=== PATIENT | male | born 1960 | race Caucasian/White ===

== ENCOUNTER 2017-06-28 04:50 | Inpatient (IN) | payer OTHER ==
[2017-06-03 14:03] VITALS: BMI 31.0
--- NOTE | 2017-06-03 14:30 | PAT Medication Instructions ---
Service Date Jun 03, 2017. Current Home Medication List Aspirin (Aspirin Ec), 81 MG PO QPM Atorvastatin (Lipitor), 40 MG PO QPM Metoprolol Succ (Toprol Xl) (Toprol-Xl), 50 MG PO QPM Medication Instructions For Your Scheduled Surgery - Take the following medications as scheduled the night before surgery: Aspirin (Aspirin Ec), 81 MG PO QPM Atorvastatin (Lipitor), 40 MG PO QPM Metoprolol Succ (Toprol Xl) (Toprol-Xl), 50 MG PO QPM If you have any questions please call us at [phone] or [phone] or [phone]
--- NOTE | 2017-06-03 15:34 | DIAGNOSTIC IMAGING REPORT ---
TWO VIEW CHEST CLINICAL HISTORY: Preoperative examination. FINDINGS: PA and lateral chest radiographs are obtained. No prior studies are available for comparison at the time of dictation. The cardiomediastinal silhouette is unremarkable. There are low lung volumes with mild bibasilar atelectasis. The lungs and pleural spaces are otherwise clear. There is no pneumothorax. The bony thorax appears intact. IMPRESSION: Low lung volumes with no active disease in the chest. Electronically signed by: Alexandro Stockton M.D. 06/03/2017 3:32 PM Dictated Date/Time: 06/03/2017 3:32 PM
[2017-06-03 15:58] LABS: BASO % 0.5 %; BASO ABS # 0.05 K/uL (0-0.2); EOS % 3.2 %; HEMATOCRIT 47.1 % (42-52); HEMOGLOBIN 16.8 g/dL (14.0-18.0); IG# 0.04 K/uL (0.00-0.02); LYMPH % 31.5 %; LYMPH ABS # 2.92 K/uL (1.2-3.4); MEAN CELL VOLUME 90.1 fL (80-100); MEAN CORPUSCULAR HEMOGLOBIN 32.1 pg (25-34); MEAN CORPUSCULAR HGB CONC 35.7 g/dl (32-36); MEAN PLATELET VOLUME 9.3 fL (7.4-10.4); MONO ABS # 0.46 K/uL (0.11-0.59); NEUT % 59.4 %; NEUT ABS # 5.49 K/uL (1.4-6.5); PLATELET COUNT 182 K/uL (130-400); RED CELL DISTRIBUTION WIDTH CV 13.2 % (11.5-14.5); RED CELL DISTRIBUTION WIDTH SD 43.4 fL (36.4-46.3); WHITE BLOOD COUNT 9.26 K/uL (4.8-10.8)
[2017-06-03 16:05] LABS: PTT PATIENT 25.4 SECONDS (21.0-31.0)
[2017-06-03 16:47] LABS: ALBUMIN 3.9 gm/dl (3.4-5.0); CALCIUM 9.2 mg/dl (8.5-10.1); CREATININE 0.83 mg/dl (0.60-1.40); POTASSIUM 3.8 mmol/L (3.5-5.1)
[2017-06-04 06:00] LABS: HEMOGLOBIN A1C 5.1 % (4.5-5.6)
--- NOTE | 2017-06-24 10:44 | History and Physical ---
History & Physical Date Jun 24, 2017. Chief Complaint Left shoulder pain History of Present Illness The patient is a 57 year old male with complaints of left shoulder pain for several years. He has tried conservative therapies with minimal relief. He would like to proceed with a left total shoulder arthroplasty with posterior augmented glenoid. Past Medical/Surgical History PMHx: hypertension, hypercholesterolemia PSHx: bilateral ACL reconstruction, appendectomy, tonsillectomy Additional History Hepatic Disease: No Endocrine Disorder: No Kidney Disease: No Hypertension: Yes Heart Disease: No Bleeding Tendencies: No Infectious Diseases: No Allergies Coded Allergies: Penicillins (Verified Allergy, Unknown, RASH, 06/03/17) Home Medications Scheduled Aspirin (Aspirin Ec), 81 MG PO QPM Atorvastatin (Lipitor), 40 MG PO QPM Metoprolol Succ (Toprol Xl) (Toprol-Xl), 50 MG PO QPM Physical Examination Skin: warm/dry, no rash Eyes: normal inspection, EOMI ENT: normal ENT inspection Head: normocephalic, atraumatic Neck: supple, no adenopathy Respiratory/Chest: lungs clear, normal breath sounds Cardiovascular: regular rate, rhythm, no murmur Abdomen / GI: normal bowel sounds, non tender Extremities: normal inspection, + pertinent finding (Decreased ROM and decreased Strength. ) Neurologic/Psych: no motor/sensory deficits, alert, oriented x 3 Diagnosis Left shoulder primary osteoarthritis Plan of Treatment Patient is scheduled for a left total shoulder arthroplasty with posterior augmented glenoid. Patient has failed conservative therapies and would like to proceed with scheduled surgery. Risks and benefits to surgery were discussed and they wish to proceed. All questions were answered to their satisfaction.
[~2017-06-28] VITALS: Ht 190.5 cm; Wt 113.9 kg
[2017-06-28] VITALS (8 sets, daily range): BP systolic 95–157; BP diastolic 61–86; PULSE 51–88; TEMP 36.4–37; O2SAT 92–96; Ht 190.5 cm; Wt 113.9 kg
[~2017-06-28 04:50] MED LIST: ASPI81TA28 PO; ATOR-24 PO; METO50TA8 PO
[2017-06-28] MEDS ORDERED: LACTATED RINGER'S 1000ML 1,000 ML IV SCH (06:00)
[2017-06-28] MEDS ORDERED: GABAPENTIN 600 MG PO SCH (06:00)
[2017-06-28] MEDS ORDERED: CLINDAMYCIN 600 MG/54 ML D5W IV SCH (06:00)
[2017-06-28] MEDS ORDERED: ROPIVACAINE 5MG/ML 30 ML 150 MG, BUPIVACAINE 0.5% MPF INJ 30 ML, EpINEphrine HCL INJ 0.... INFIL SCH ×8 (06:00)
[2017-06-28] MEDS ORDERED: METOCLOPRAMIDE HCL 10 MG TAB PO SCH (06:00)
[2017-06-28] MEDS ORDERED: DEXAMETHASONE 4 MG TAB PO SCH (06:00)
[2017-06-28] MEDS ORDERED: FAMOTIDINE 20 MG TAB PO SCH (06:00)
[2017-06-28] MEDS ORDERED: ACETAMINOPHEN 500 MG TAB PO SCH (06:00)
[2017-06-28] MEDS ORDERED: CeleBREX 200 MG CAP PO SCH (06:00)
[2017-06-28] MEDS: TRANEXAMIC ACID INJ 1,000 MG x 2 Bags IV SCH ×4 (06:26→10:09)
[2017-06-28] MEDS ORDERED: BUPIVACAINE 0.25% 30 ML VIAL ONE (06:31)
[2017-06-28] MEDS ORDERED: ROPIVACAINE 0.5% 5 MG/ML 30 ML VIAL ONE (06:32)
[2017-06-28] MEDS ORDERED: EpINEphrine INJ 1MG/ML AMP 1 MG/ML AMP ONE (06:32)
[2017-06-28] MEDS ORDERED: CLONIDINE HCL 100 MCG/ML SYRINGE ONE (06:32)
[2017-06-28] MEDS ORDERED: ORTHO JOINT ANESTHETIC ONE (06:35)
[2017-06-28] MEDS ORDERED: POVIDONE-IODINE OP SOLN 30 ML BTL ONE (06:35)
[2017-06-28] MEDS ORDERED: VANCOMYCIN HCL 1000MG/20ML VIAL ONE (06:35)
[2017-06-28] MEDS ORDERED: BACITRACIN 50000 UNIT VIAL ONE (06:35)
[2017-06-28] MEDS ORDERED: THROMBIN FOR SOLN 20000 UNIT KIT ONE ×2 (06:35→09:27)
[2017-06-28] MEDS ORDERED: FENTANYL CITRATE INJ 50 MCG/1 ML 2 ML VIAL ONE ×2 (06:46→10:36)
[2017-06-28] MEDS ORDERED: MIDAZOLAM HCL 1 MG/ML 2ML VIAL ONE (06:46)
--- NOTE | 2017-06-28 06:59 | History & Physical Bridge Note ---
H&P Re-Evaluation Bridge Note: I have examined the patient, reviewed the History & Physical and in the interval since the performance of the History & Physical I have noted the following changes of clinical significance: No changes noted
[2017-06-28] MEDS ORDERED: ONDANSETRON INJ 2 MG/ML 2 ML VIAL ONE (07:14)
[2017-06-28] MEDS ORDERED: LIDOCAINE HCL 2% 2 ML VIAL (20MG/ML) ONE (07:14)
[2017-06-28] MEDS ORDERED: PROPOFOL IV EMULSION 10 MG/ML 20 ML VIAL IV ONE (07:14)
[2017-06-28] MEDS ORDERED: DEXAMETHASONE SOD INJ 4 MG/ML VIAL ONE (07:14)
[2017-06-28] MEDS ORDERED: SUCCINYLCHOLINE CHLORIDE 20 MG/ML 10 ML VIAL IV ONE (07:14)
[2017-06-28] MEDS ORDERED: EpHEDrine SULFATE 50MG/5ML SYR ONE (07:38)
[2017-06-28] MEDS ORDERED: EpINEphrine HCL INJ 1 MG/ML 1ML SYRINGE ONE (08:05)
[2017-06-28] MEDS ORDERED: ROCURONIUM BROMIDE 10 MG/ML 5 ML VIAL IV ONE (10:10)
[2017-06-28] MEDS ORDERED: GLYCOPYRROLATE INJ 0.2 MG/ML VIAL ONE (10:32)
[2017-06-28] MEDS ORDERED: NEOSTIGMINE METHYLSULFATE 5 MG/5 ML SYR ONE (10:32)
--- NOTE | 2017-06-28 10:42 | [facility] Operative Report ---
Operative Report Operative Date Jun 28, 2017. Pre-Operative Diagnosis Left shoulder primary osteoarthritis with a B-2 glenoid and significant posterior wear Post-Operative Diagnosis Same as preop plus tear long head of the biceps tendon Procedure(s) Performed Left Total Shoulder Arthroplasty, Posterior Augmented Glenoid and biceps tenodesis Surgeon Dr. Fraser Elder Assistant Surgeon(s) Antonio Perdomo PA-C Estimated Blood Loss 100 cc Specimens A: left humeral head Drains None Anesthesia Type General Regional Complication(s) none Disposition Recovery Room / PACU Indications The patient is a 57-year-old male. He has failed extensive left shoulder arthritis. He has a B-2 type glenoid. He has failed conservative measures including anti-inflammatories rehabilitation and cortisone. He continues to have pain, disability and sensation of instability likely humeral head going over the biconcave B-2 glenoid. Failing conservative measures he wishes to proceed with a total shoulder arthroplasty with a posterior augmented glenoid component Description of Procedure Risks, benefits and alternatives to surgery including, but not limited to, infection DVT, pain, stiffness, need for revision surgery, failure to relieve all symptoms, damage to blood vessels, damage to nerves, risk of anesthesia were discussed with the patient and they wished to proceed. The patient was identified. Laterality was confirmed and marked. The patient received a preoperative antibiotic as well as an interscalene block. They were transferred to the operating room and placed in the supine position and induced into general endotracheal anesthesia per the anesthesia staff. The patient was then safely transferred to a slight beachchair position. The patient was secured in the Tenet positioner. All pressure points were well padded. The shoulder was prepped and draped in the usual sterile manner with ChloraPrep. The arm was secured in the Spider monzon. I made a longitudinal incision just lateral to the coracoid, sharply incising through the skin and utilizing Bovie electrocautery to achieve hemostasis. I identified the cephalic vein and mobilized it laterally with the deltoid. I mobilize the pectoralis and mobilize this medially releasing a small portion of the upper border of the pec tendon to improve visualization. I then identified and mobilized the conjoined tendon. I identified the long head of the biceps tendon. The long head of the biceps tendon had significant tendinosis and tearing proximally. I performed an in situ biceps tenodesis with interrupted #2 FiberWire suture. I then released the subscapularis. I tagged this with interrupted 0 Ethibond suture for later repair. I pinned into place my humeral head version cutting guide and made my humeral head resection. Inferior osteophytes were removed with a rongeur. I then sequentially reamed and sequentially broached. I then placed the trial humeral stem into the shoulder. I placed retractors around the glenoid and then excised the residual biceps tendon stump and glenoid labrum. I elevated the soft tissues and the inferior aspect of the glenoid to improve exposure and released tissues circumferentially. He had a significantly retroverted glenoid with a B-2 type eccentric wear. I elected to use a posterior augment with an 8 augmentation. I then positioned and drilled for the central post. I then reamed both on hand as well as on power. I checked the fit and positioning for the posterior augment the glenoid component. Once I was satisfied that I had reamed down appropriately, I then drilled for the 3 peripheral pegs. I placed a trial glenoid into position and confirmed the size of the implant. I then placed thrombin-soaked sponges into the peg holes. The peg holes were cemented with Palacos G cement. The definitive polyethylene was then impacted into place. I then removed the trial humeral stem . I then drilled holes in my subscapularis repair. I placed a total of 3 #2 FiberWire sutures through the drill holes and placed them in a looped fashion around the stem. I then placed the definitive humeral stem. I trialed off of the definitive stem. The definitive components used were [employer] Equinox: Humeral press-fit stem: 17 Glenoid: Extra-large 8 posterior augment cemented, pegged Replicator plate: 4.5 Humeral head: 53 x 24 mm I thoroughly irrigated the wound. Deep tissues were anesthetized with an orthomix solution. I then locked replicator plate into position with a torque limiting screw. I then impacted the definitive humeral head into position. I then reduced the shoulder. There was good range of motion and good stability after the reduction. I used the #2 FiberWire suture for a medial row repair of the subscapularis. I then performed a lateral row repair with a running #5 FiberWire suture. The rotator interval was closed with interrupted #2 FiberWire suture. The wound was again thoroughly irrigated and a Betadine soak was performed. The deltopectoral interval was closed with interrupted #1 Ethibond suture. The subcutaneous tissue was closed with interrupted 2-0 Vicryl suture. The skin was closed with kobi. A sterile dressing was applied. A sling was placed. All needle and sponge counts were correct at the end of the procedure. The patient was transferred to the PACU in stable condition without apparent complication. The PA-C was necessary for assistance with procedure for assistance in positioning, prepping, draping, retraction and closure. I attest to the content of the Intraoperative Record and any orders documented therein. Any exceptions are noted below.
[2017-06-28] MEDS ORDERED: SOD PHOSPHATE/SOD BIPHOSPHATE ENEMA 132 ML BTL PR PRN (11:15)
[2017-06-28] MEDS ORDERED: MAGNESIUM HYDROXIDE SUSP 30 ML UDC PO PRN (11:15)
[2017-06-28] MEDS ORDERED: ONDANSETRON INJ 2 MG/ML 2 ML VIAL IV PRN ×2 (11:15→11:30)
[2017-06-28] MEDS ORDERED: BISACODYL 10 MG SUPP PR PRN (11:15)
[2017-06-28] MEDS ORDERED: ALUMINUM/MAGNESIUM SUSP 30 ML UDC PO PRN (11:15)
[2017-06-28] MEDS ORDERED: ZOLPIDEM TARTRATE 5 MG TAB PO PRN (11:15)
[2017-06-28] MEDS ORDERED: FLUMAZENIL 0.1 MG/1 ML 10 ML VIAL IV PRN (11:30)
[2017-06-28] MEDS ORDERED: HYDROmorphone INJ 2 MG/ML SYR/VIAL IV PRN (11:30)
[2017-06-28] MEDS ORDERED: MEPERIDINE HCL 25 MG/ML CARP IV PRN (11:30)
[2017-06-28] MEDS ORDERED: EpHEDrine SULFATE INJ 50 MG/ML AMP IV PRN (11:30)
[2017-06-28] MEDS ORDERED: ATROPINE SULFATE 0.1 MG/ML 5ML SYR IV PRN (11:30)
[2017-06-28] MEDS ORDERED: FENTANYL CITRATE INJ 50 MCG/1 ML 2 ML VIAL IV PRN (11:30)
[2017-06-28] MEDS ORDERED: NALOXONE HCL 0.4 MG/1 ML VIAL/CARP IV PRN (11:30)
[2017-06-28] MEDS ORDERED: PHENYLEPHRINE 100MCG/ML 5ML SYR IV PRN (11:30)
[2017-06-28] MEDS ORDERED: LABETALOL HCL IV 5 MG/ML 20ML IV PRN (11:30)
--- NOTE | 2017-06-28 12:10 | DIAGNOSTIC IMAGING REPORT ---
LEFT SHOULDER 2 VIEWS CLINICAL HISTORY: Postoperative examination. FINDINGS: 2 portable views of the left shoulder are obtained. No prior studies are available for comparison at the time of dictation. A left shoulder arthroplasty is in near-anatomic alignment. No acute fracture is seen. There are expected postoperative changes overlying the left shoulder including skin clips, subcutaneous gas, and soft tissue swelling. The visualized left lung parenchyma appears clear. IMPRESSION: Expected postoperative findings status post left shoulder arthroplasty. No acute fracture is seen. Electronically signed by: Alexandro Stockton M.D. 06/28/2017 12:08 PM Dictated Date/Time: 06/28/2017 12:07 PM
--- NOTE | 2017-06-28 12:24 | Anesthesiology Progress Note ---
Anesthesia Post Op Note Date & Time Jun 28, 2017 at 12:23 Vital Signs Pain Intensity: 0 Vital Signs Past 12 Hours Date Time Temp Pulse Resp B/P (MAP) Pulse Ox O2 Delivery O2 Flow Rate FiO2 06/28/17 12:15 36.5 85 16 106/73 94 Nasal Cannula 4 06/28/17 12:05 90 16 135/84 94 Nasal Cannula 4 06/28/17 11:55 74 16 131/89 95 Nasal Cannula 4 06/28/17 11:45 89 16 132/76 95 Oxymask 15 06/28/17 11:35 85 16 141/87 94 Oxymask 15 06/28/17 11:25 75 16 130/72 94 Oxymask 15 06/28/17 11:15 73 16 137/76 92 Oxymask 15 06/28/17 11:07 36.1 82 16 125/77 92 Oxymask 15 06/28/17 05:49 36.6 51 20 131/84 96 Room Air Notes Mental Status: alert / awake / arousable, participated in evaluation Pt Amnestic to Procedure: Yes Nausea / Vomiting: adequately controlled Pain: adequately controlled Airway Patency, RR, SpO2: stable & adequate BP & HR: stable & adequate Hydration State: stable & adequate Anesthetic Complications: no major complications apparent
[2017-06-28] MEDS: ACETAMINOPHEN 500 MG TAB PO SCH ×2 (15:18→21:51)
[2017-06-28] MEDS: POTASSIUM CHLORIDE INJ 10 MEQ in SODIUM CHLORIDE 0.9% 1000ML 1,000 ML IV SCH (15:19)
[2017-06-28] MEDS: CLINDAMYCIN IV 600 MG in DEXTROSE 5% 50ML 50 ML IV SCH (15:19)
[2017-06-28] MEDS: OXYCODONE HCL IR 5 MG TAB (IMMEDIATE RELEASE) PO PRN ×2 (17:06→21:50)
[2017-06-28] MEDS: FERROUS GLUCONATE 324 MG TAB PO SCH (19:04)
[2017-06-28] MEDS: DOCUSATE SODIUM 100 MG CAP PO SCH (20:09)
[2017-06-28] MEDS ORDERED: ASPIRIN 81 MG ECTAB PO SCH (21:00)
[2017-06-28] MEDS ORDERED: METOPROLOL SUCC 50MG EXT REL TAB PO SCH (21:00)
[2017-06-28] MEDS ORDERED: ATORVASTATIN 20 MG TAB PO SCH (21:00)
[2017-06-28] MEDS ORDERED: SENNA 8.6 MG TAB PO SCH (21:00)
[2017-06-29] MEDS: POTASSIUM CHLORIDE INJ 10 MEQ in SODIUM CHLORIDE 0.9% 1000ML 1,000 ML IV SCH ×2 (00:33→08:49)
[2017-06-29] MEDS: CLINDAMYCIN IV 600 MG in DEXTROSE 5% 50ML 50 ML IV SCH (00:33)
[2017-06-29] MEDS: OXYCODONE HCL IR 5 MG TAB (IMMEDIATE RELEASE) PO PRN ×2 (02:57→07:36)
[2017-06-29 03:11] VITALS: BP 111/69; PULSE 61; TEMP 36.5; O2SAT 93
[2017-06-29] MEDS: ACETAMINOPHEN 500 MG TAB PO SCH (05:58)
[2017-06-29 06:53] VITALS: BP 120/79; PULSE 75; TEMP 36.7; O2SAT 92
[2017-06-29] MEDS: FERROUS GLUCONATE 324 MG TAB PO SCH ×2 (08:44→12:28)
[2017-06-29] MEDS: DOCUSATE SODIUM 100 MG CAP PO SCH (08:44)
[2017-06-29] MEDS ORDERED: MULTIVITAMIN TAB PO SCH (09:00)
[2017-06-29] MEDS ORDERED: MoRPHine SULFATE 2 MG/ML CARP ONE (09:05)
[2017-06-29] MEDS ORDERED: OXYCODONE/ACETAMINOPHEN 5-325 TAB PO PRN (09:45)
--- NOTE | 2017-06-29 09:45 | Orthopedic Progress Note ---
Orthopedic Progress Note Date of Service Jun 29, 2017. Subjective Post OP Day: 1 Denies: chest pain, SOB, nausea / vomiting, light headedness, calf pain, pain controlled w PO medications (Once the block wore off this morning, the pain increased significantly and the Oxy IR wasn't helping the pain.) Additional Notes: The morphine dose given recently has helped the pain significantly. Objective N/V intact, capillary refill less than 2 sec., dressing C/D/I, A&O x3 left hand: fingers are mobile. LUE in sling. NV intact LUE. Date Time Temp Pulse Resp B/P (MAP) Pulse Ox O2 Delivery O2 Flow Rate FiO2 06/29/17 06:53 36.7 75 18 120/79 (93) 92 Room Air 06/29/17 03:11 36.5 61 18 111/69 (83) 93 Room Air 06/29/17 00:30 Room Air 06/28/17 22:55 36.7 65 18 120/85 (97) 93 Room Air 06/28/17 19:10 36.7 62 18 111/66 (81) 92 Room Air 06/28/17 15:42 36.4 68 18 95/61 (72) 94 Room Air 06/28/17 14:40 75 18 124/69 (87) 96 Nasal Cannula 2.0 06/28/17 13:35 81 18 157/86 (109) 96 Nasal Cannula 4.0 06/28/17 13:01 37.0 88 18 126/82 (97) 96 Nasal Cannula 2.0 06/28/17 12:35 Nasal Cannula 4.0 06/28/17 12:35 36.5 81 18 120/79 (93) 95 Nasal Cannula 4.0 06/28/17 12:35 95 Nasal Cannula 4.0 06/28/17 12:15 36.5 85 16 106/73 94 Nasal Cannula 4 06/28/17 12:05 90 16 135/84 94 Nasal Cannula 4 06/28/17 11:55 74 16 131/89 95 Nasal Cannula 4 06/28/17 11:45 89 16 132/76 95 Oxymask 15 06/28/17 11:35 85 16 141/87 94 Oxymask 15 06/28/17 11:25 75 16 130/72 94 Oxymask 15 06/28/17 11:15 73 16 137/76 92 Oxymask 15 06/28/17 11:07 36.1 82 16 125/77 92 Oxymask 15 Laboratory Results 24 Hours: Test 06/29/17 04:44 Assessment & Plan Assessment: POD #1 s/p Left Total Shoulder Arthroplasty, Posterior Augmented Glenoid and biceps tenodesis Plan: Maintain LUE in sling ROM of elbow and wrist left side. Pain control Once pain is controlled, will d/c home. Inhouse Planning Pain Management: Morphine, Oxy IR (Will change to Percocet to see if it can control the pain better.) DVT Prophylaxis: ASA Discharge Planning Discharge Planning: home
[2017-06-29 09:52] LABS: HEMATOCRIT 38.9 % (42-52); HEMOGLOBIN 13.3 g/dL (14.0-18.0); MEAN CORPUSCULAR HEMOGLOBIN 31.4 pg (25-34); MEAN CORPUSCULAR HGB CONC 34.2 g/dl (32-36); MEAN PLATELET VOLUME 8.6 fL (7.4-10.4); PLATELET COUNT 140 K/uL (130-400); RED CELL DISTRIBUTION WIDTH CV 13.3 % (11.5-14.5); RED CELL DISTRIBUTION WIDTH SD 44.9 fL (36.4-46.3); WHITE BLOOD COUNT 12.43 K/uL (4.8-10.8)
[2017-06-29] MEDS: MoRPHine SULFATE 2 MG/ML CARP IV PRN ×2 (10:12→12:28)
[2017-06-29 10:18] LABS: CALCIUM 8.2 mg/dl (8.5-10.1); CREATININE 0.94 mg/dl (0.60-1.40); POTASSIUM 4.4 mmol/L (3.5-5.1)
[2017-06-29] MEDS ORDERED: KETOROLAC TROMETHAMINE 15 MG/ML VIAL IV PRN (10:30)
[2017-06-29 10:50] VITALS: BP 132/78; PULSE 98; TEMP 36.9; O2SAT 94
[2017-06-29] MEDS ORDERED: NURSING VERBAL MED ORDER ONE (11:45)
[2017-06-29] MEDS ORDERED: OXYCODONE HCL IR 5 MG TAB (IMMEDIATE RELEASE) ONE (11:50)
[2017-06-29] MEDS ORDERED: OXYCODONE HCL IR 5 MG TAB (IMMEDIATE RELEASE) PO ONE (12:00)
[2017-06-29 15:32] VITALS: BP 142/70; PULSE 57; TEMP 37.1; O2SAT 94
[2017-06-29] MEDS ORDERED: OXYC1TAB3 PO (15:59)
[2017-06-29] MEDS ORDERED: ACET-1138 PO (15:59)
--- NOTE | 2017-06-29 16:01 | Discharge Instructions ---
Discharge Instructions Date of Service Jun 29, 2017. Admission Reason for Admission: Left Shoulder Osteoarthritis Discharge Discharge Diagnosis / Problem: left shoulder traumatic osteoarthritis Discharge Goals Goal(s): Decrease discomfort, Improve function Activity Recommendations Activity Limitations: per Instructions/Follow-up section . Instructions / Follow-Up Instructions / Follow-Up ACTIVITY RECOMMENDATIONS: SELF CARE INSTRUCTIONS AFTER TOTAL SHOULDER ARTHROPLASTY A. You may do daily exercises as taught in physical therapy while in hospital. No lifting with the operative arm. Please schedule your outpatient physical therapy appointment to begin within 2-3 days after leaving the hospital. Specific restrictions will be written on your physical therapy prescription that is provided to you. B. You are to wear your sling/immobilizer at all times EXCEPT when performing your daily exercises, participating in physical therapy and for hygiene purposes. C. You may perform dry, daily dressing changes. Please keep your incision covered. You may shower 48 hours after surgery. Do not apply soap or any ointment/ lotions directly over incision. Do not soak incision in bath tub/swimming pool. D. You may use ice as needed to operative shoulder. SPECIAL CARE INSTRUCTIONS: MEDICATION INSTRUCTIONS: *It is recommended you take Aspirin 81 mg daily for four weeks post-op. VERY IMPORTANT TO READ AND REVIEW A. There are a few signs you need to watch for after you are home. Call [facility] at [phone] if you experience any of the followin. Increased severe shoulder pain. Some pain is expected especially when you exercise. 2. Increased swelling in you shoulder or arm; pain or swelling in either upper extremity. 3. Any fluid drainage from the incision. 4. Shortness of breath or chest pain. B. Please call [facility] at [phone] if you have any questions or concerns about your operation or recovery. C. Call your physician if: 1. Temperature is greater than 101 degrees (F). 2. Pain is not relieved by prescribed pain medications. 3. Increase drainage or redness from incision. 4. Unanswered questions or concerns. FOLLOW UP VISIT: Please call [facility] at [phone] to schedule a follow up appointment with Dr. Fraser or his PA in 12-14 days from your surgery date. Current Hospital Diet Patient's current hospital diet: Regular Diet Discharge Diet Recommended Diet: Regular Diet Procedures Procedures Performed: Left Total Shoulder Arthroplasty, Posterior Augmented Glenoid and biceps tenodesis Pending Studies Studies pending at discharge: no Laboratory Results Hemoglobin A1c Test 06/03/17 14:39 Range/Units Estimated Average Glucose 100 mg/dl Hemoglobin A1c 5.1 4.5-5.6 % Medical Emergencies . Who to Call and When: Medical Emergencies: If at any time you feel your situation is an emergency, please call 911 immediately. . Non-Emergent Contact Non-Emergency issues call your: Surgeon Call Non-Emergent contact if: temperature is above 101, your pain is not controlled, your pain is worsening, wound has increased drainage, wound has increased redness . "Provider Documentation" section prepared by Dawit Cobian. . VTE Core Measure Inpt VTE Proph given/why not?: Other Anticoagulation
[2017-06-29 16:13] VITALS: BP 142/70; PULSE 57; TEMP 37.1; O2SAT 94
--- NOTE | 2017-07-04 08:25 | Discharge Summary ---
Orthopedic Discharge Summary Admission Date/Reason Jun 28, 2017 at 05:45 Left Shoulder Osteoarthritis. Discharge Date/Disposition Jun 29, 2017 Home Diagnosis Principal Diagnosis: S/P left total shoulder arthroplasty with posterior augmentation of the glenoid Medication Reconciliation as per discharge instructions Admission Physical Exam As per Admitting History & Physical. Hospital Course POD#1 patient had some difficulty with pain after the block wore off. His medications were changed to where is pain was better controlled. His dressing was clean, dry and intact. He was neurovascularly intact. He would be discharged later that day home as long as pain was well controlled. Discharge Instructions Please refer to the electronic Patient Visit Report (Discharge Instructions) for additional information.
== END 2017-06-29 17:15 | disposition home or self-care (01) | DRG 483 ==
LOC: C.ACU 04:50 → C.MSW 05:45 → ENRESERV 12:19
PROVIDERS: ADMIT Orthopaedic Surgery; ATTEND Orthopaedic Surgery
PROC: 0RRK0JZ Replacement of Left Shoulder Joint with Synthetic Substitute, Open Approach (ICD-10-PCS; principal; 2017-06-28 07:00)
PROC: 0LQ20ZZ Repair Left Shoulder Tendon, Open Approach (ICD-10-PCS; principal; 2017-06-28 07:00)
DX: M19.012 Primary osteoarthritis, left shoulder (principal); S46.912A Strain of unspecified muscle, fascia and tendon at shoulder and upper arm level, left arm, initial encounter; I10 Essential (primary) hypertension; E78.00 Pure hypercholesterolemia, unspecified; Z79.82 Long term (current) use of aspirin; Z79.899 Other long term (current) drug therapy; Z88.0 Allergy status to penicillin; X58.XXXA Exposure to other specified factors, initial encounter